=== PATIENT | female | born 1950 | race Caucasian/White ===

== ENCOUNTER 2020-03-02 19:53 | Emergency (ER) | payer MEDICARE ==
[~2020-03-02] VITALS: Ht 149.9 cm; Wt 53.0 kg
[~2020-03-02 19:53] MED LIST: BIOTIN MAXI10000 MCG PO; EC-NAPROSYN500 MG PO; ESTRADIOL0.5 MG PO; FISH OIL1200 M1 PO; FLUTICASONE50 MCG; GABAPENTIN800 MG PO; IBUPROFEN200 MG PO; IMITREX100 MG PO; LIDOCAINE5 % EX; MECLIZINE25 MG PO; NORCO1 TA2 PO; VITAMIN D31000 UNI1 PO; VOLTAREN1%GEL TOP; ZOFRAN ODT4 MG PO; ZOLPIDEM5 M1 PO; ZYRTEC10 MG PO
[2020-03-02] MEDS ORDERED: DULOXETINE HYDR60 MG PO (20:18)
[2020-03-02] MEDS ORDERED: HYDROCODONE/ACE1 T12 PO (20:20)
[2020-03-02 21:41] VITALS: BP 159/76
[2020-03-02] MEDS ORDERED: IBUPROFEN600 MG PO (21:42)
[2020-03-02] MEDS ORDERED: ORPHENADRINE100 MG PO (21:42)
== END 2020-03-02 21:48 | disposition home or self-care (01) ==
LOC: ED 19:53
DX: M79.671 Pain in right foot (principal); R20.3 Hyperesthesia